=== PATIENT | male | born 1945 | race Caucasian/White ===

== ENCOUNTER 2019-09-27 19:06 | Observation (INO) | payer MEDICARE, BC ==
[2019-09-27] MEDS ORDERED: Sodium Chloride 0.9% 10 ML SDV IV PRN (19:10)
[2019-09-27] MEDS ORDERED: Aspirin 81 MG Tab.Chew PO ONE (19:10)
[2019-09-27] MEDS ORDERED: Sodium Chloride 0.9% 10 ML Syringe FLUSH PRN (19:10)
[2019-09-27] MEDS ORDERED: Sodium Chloride 0.9% 2.5 ML Syringe FLUSH PRN (19:10)
--- NOTE | 2019-09-27 19:16 | EDM.PDOC ---
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 This lasted for about 1 minute before symptoms subsided. He took 2 full dose aspirin tablets (approximately 648 mg) before driving to the emergency department. Here in the emergency department, he denies any neurologic complaints at this point. His visual disturbance was not associated with any facial numbness or weakness, dysarthria, facial droop, extremity numbness or weakness, gait instability, nausea, or vomiting. He denies any known history of hypertension, hyperlipidemia, or diabetes mellitus. At present, he has no complaints. Onset: Today Duration: Hour(s): (1) - Related Data Allergies Allergy/AdvReac Type Severity Reaction Status Date / Time No Known Allergies Allergy Verified 09/27/19 19:32 Home Meds: Home Meds . [No Known Home Meds] 09/27/19 [History] Past Medical History HEENT History: Reports: None Cardiovascular History: Reports: CAD, Hypertension Respiratory History: Reports: None Gastrointestinal History: Reports: None Genitourinary History: Reports: None Musculoskeletal History: Reports: None Neurological History: Reports: CVA (Remote history of an ischemic CVA approximately 20 years ago), Other (See Below) Other Neuro History: Stroke Psychiatric History: Reports: None Endocrine/Metabolic History: Reports: None Hematologic History: Reports: None Immunologic History: Reports: None Oncologic (Cancer) History: Reports: None Dermatologic History: Reports: None - Infectious Disease History Infectious Disease History: Reports: Chicken Pox - Past Surgical History HEENT Surgical History: Reports: Tonsillectomy Male Surgical History: Reports: None Social & Family History - Family History Family Medical History: Noncontributory - Caffeine Use Caffeine Use: Reports: Coffee ED ROS GENERAL - Review of Systems Review Of Systems: Comprehensive ROS is negative, except as noted in HPI. Constitutional: Denies: Fever HEENT: Reports: Vision Change Respiratory: Denies: Shortness of Breath Cardiovascular: Denies: Chest Pain Endocrine: Reports: No Symptoms GI/Abdominal: Denies: Abdominal Pain, Difficulty Swallowing, Nausea, Vomiting : Reports: No Symptoms Musculoskeletal: Reports: No Symptoms Skin: Reports: No Symptoms Neurological: Reports: Other (Transient visual disturbance). Denies: Dizziness , Headache, Numbness, Trouble Speaking, Difficulty Walking, Weakness, Change in Speech, Gait Disturbance Psychiatric: Reports: No Symptoms Hematologic/Lymphatic: Reports: No Symptoms Immunologic: Reports: No Symptoms ED EXAM, NEURO - Physical Exam Exam: See Below Exam Limited By: No Limitations General Appearance: Alert Ears: Hearing Grossly Normal Nose: Normal Inspection Throat/Mouth: Normal Inspection Head Exam: Atraumatic, Normocephalic Neck: Supple, Non-Tender, Full Range of Motion. No: Carotid Bruit, Limited Range of Motion Respiratory/Chest: Lungs Clear, Normal Breath Sounds, No Accessory Muscle Use Cardiovascular: Normal Peripheral Pulses, Regular Rate, Rhythm, No Edema, No Gallop GI/Abdominal: Soft, Non-Tender Neurological: Alert, Normal Mood/Affect, CN II-XII Intact, No Motor/Sensory Deficits, Oriented x 3, Other. No: Abnormal Gait, Abnormal Finger to Nose Extremities: Normal Range of Motion Psychiatric: Normal Affect, Normal Mood Skin Exam: Warm, Dry EKG INTERPRETATION EKG Date: 09/27/19 Time: 19:31 Rhythm: Other (Sinus bradycardia) Rate (Beats/Min): 55 [place]: LAD-Left [place]stone Deviation P-Wave: Enlarged QRS: LBBB ST-T: Normal QT: Normal EKG Interpretation Comments: Sinus bradycardia 55 bpm. Left axis deviation. First-degree AV block. Left bundle branch block. No ectopy or acute ischemia appreciated. Course - Vital Signs Text/Narrative:: On arrival, the patient was mildly hypertensive but afebrile and hemodynamically stable, well-appearing. Patient was immediately roomed in triage. No focal neurologic deficits noted, NIH score of 0. IV access was established and labs were sent off. We obtained a twelve-lead EKG, showing sinus bradycardia with a left bundle branch block and a first-degree AV block but no acute ischemia or ectopy. Labs returned showing no significant derangements. Normal cell lines. Normal INR and APTT. Metabolic panel shows mildly elevated BUN but normal creatinine and electrolytes. Troponin testing is negative. Hepatic markers are negative. We obtained a noncontrast head CT along with angiography neck, showing a old left parietal infarct but no acute changes. Patient received full dose aspirin prior to arrival to the hospital so this was not given here. Symptoms are concerning for a transient ischemic attack. ABCD2 score is 2. Serial examinations revealed no neurologic deficits, NIH score remains 0 during the emergency department course of treatment. Will plan for admission to the hospital on observation status for TIA work-up. I discussed with the accepting hospitalist Dr. Hartley who agrees to admit to observation. Last Recorded V/S: Last Vital Signs Temp 36.0 C L 09/27/19 19:29 Pulse 59 L 09/27/19 20:45 Resp 11 L 09/27/19 20:45 BP 150/84 H 09/27/19 20:45 Pulse Ox 99 09/27/19 20:45 - Orders/Labs/Meds Orders: Active Orders 24 hr Category Date Time Status Admission Status [Patient Status] [ADT] Stat ADT 09/27/19 21:18 Active Ambulate [RC] ASDIRECTED Care 09/27/19 21:29 Active Antiembolic Devices [RC] PER UNIT ROUTINE Care 09/27/19 21:30 Active Assess Neurological Status [RC] CONTINUOUS Care 09/27/19 19:10 Active Blood Glucose Check, Bedside [RC] STAT Care 09/27/19 19:10 Active Cardiac Monitoring [RC] CONTINUOUS Care 09/27/19 19:10 Active Communication Order [RC] STAT Care 09/27/19 19:10 Active EKG 12 Lead [EKG Documentation Completion] [RC] STAT Care 09/27/19 19:14 Active Height and Weight [RC] UPON Care 09/27/19 19:10 Active NIH Stroke Scale [RC] STAT Care 09/27/19 19:10 Active Oxygen Therapy [RC] PRN Care 09/27/19 21:29 Active Oxygen Therapy, ED [RC] ASDIRECTED Care 09/27/19 19:10 Active VTE/DVT Education [RC] PER UNIT ROUTINE Care 09/27/19 21:29 Active Vital Signs [RC] Q15M Care 09/27/19 19:10 Active Vital Signs [RC] Q4H Care 09/27/19 21:29 Active Heart Healthy Diet [DIET] Diet 09/27/19 Dinner Active Ang Head wo Cont [MR] Routine Exams 09/27/19 21:32 Ordered Brain wo Cont [MR] Routine Exams 09/27/19 21:32 Ordered Echo Comp wo Cont [US] Stat Exams 09/27/19 21:53 Ordered GLYCOSYLATED HEMOGLOBIN,HGBA1C [CHEM] AM Lab 09/28/19 05:11 Ordered LIPID PANEL [CHEM] AM Lab 09/28/19 05:11 Ordered TROPONIN I [CHEM] Routine Lab 09/27/19 22:00 Ordered TSH [CHEM] AM Lab 09/28/19 05:11 Ordered UA W/MICROSCOPIC [URIN] Routine Lab 09/27/19 21:29 Ordered Acetaminophen [Tylenol] Med 09/27/19 21:29 Active 650 mg PO Q4H PRN Aspirin Med 09/28/19 09:00 Active 81 mg PO DAILY Sodium Chloride 0.9% [Normal Saline] Med 09/27/19 19:10 Active 10 ml IV ASDIRECTED PRN Sodium Chloride 0.9% [Saline Flush] Med 09/27/19 19:10 Active 10 ml FLUSH ASDIRECTED PRN Sodium Chloride 0.9% [Saline Flush] Med 09/27/19 19:10 Active 2.5 ml FLUSH ASDIRECTED PRN atorvaSTATin [Lipitor] Med 09/28/19 21:00 Active 40 mg PO BEDTIME Peripheral IV Insertion Adult [OM.PC] Stat Oth 09/27/19 19:10 Ordered Sequential Compression Device [OM.PC] Per Unit Routine Oth 09/27/19 21:29 Ordered Resuscitation Status Stat Resus Stat 09/27/19 19:10 Ordered Medication Orders Acetaminophen (Tylenol) 650 mg PO Q4H PRN PRN Reason: Pain (Mild 1-3)/fever Aspirin (Aspirin) 81 mg PO DAILY ISMAEL Atorvastatin Calcium (Lipitor) 40 mg PO BEDTIME ISMAEL Sodium Chloride (Saline Flush) 10 ml FLUSH ASDIRECTED PRN PRN Reason: Keep Vein Open Sodium Chloride (Saline Flush) 2.5 ml FLUSH ASDIRECTED PRN PRN Reason: Keep Vein Open Sodium Chloride (Normal Saline) 10 ml IV ASDIRECTED PRN PRN Reason: IV Use Labs: Laboratory Tests 09/27/19 09/27/19 09/27/19 Range/Units 19:05 19:05 19:05 WBC 5.18 (4.0-11.0) K/uL RBC 4.44 L (4.50-5.90) M/uL Hgb 13.6 (13.0-17.0) g/dL Hct 41.7 (38.0-50.0) % MCV 93.9 (80.0-98.0) fL MCH 30.6 (27.0-32.0) pg MCHC 32.6 (31.0-37.0) g/dL RDW Std Deviation 48.8 (28.0-62.0) fl RDW Coeff of Yosef 14 (11.0-15.0) % Plt Count 204 (150-400) K/uL MPV 9.70 (7.40-12.00) fL Neut % (Auto) 54.6 (48.0-80.0) % Lymph % (Auto) 32.2 (16.0-40.0) % [place] % (Auto) 8.5 (0.0-15.0) % Eos % (Auto) 3.5 (0.0-7.0) % Baso % (Auto) 1.2 (0.0-1.5) % Neut # (Auto) 2.8 (1.4-5.7) K/uL Lymph # (Auto) 1.7 (0.6-2.4) K/uL [place] # (Auto) 0.4 (0.0-0.8) K/uL Eos # (Auto) 0.2 (0.0-0.7) K/uL Baso # (Auto) 0.1 (0.0-0.1) K/uL Nucleated RBC % 0.0 /100WBC Nucleated RBCs # 0 K/uL INR 1.01 APTT 27.8 (18.6-31.3) SEC Sodium 140 (136-148) mmol/L Potassium 4.2 (3.5-5.1) mmol/L Chloride 104 (98-107) mmol/L Carbon Dioxide 31.4 (21.0-32.0) mmol/L BUN 19 H (7.0-18.0) mg/dL Creatinine 1.1 (0.8-1.3) mg/dL Est Cr Clr Drug Dosing 75.38 mL/min Estimated GFR (MDRD) > 60.0 ml/min Glucose 97 (74-106) mg/dL Calcium 8.6 (8.5-10.1) mg/dL Total Bilirubin 0.4 (0.2-1.0) mg/dL AST 18 (15-37) IU/L ALT 24 (14-63) IU/L Alkaline Phosphatase 66 (46-116) U/L Troponin I < 0.050 (0.000-0.056) ng/mL Total Protein 6.6 (6.4-8.2) g/dL Albumin 3.6 (3.4-5.0) g/dL Globulin 3.0 (2.6-4.0) g/dL Albumin/Globulin Ratio 1.2 (0.9-1.6) Meds: Medications Generic Name Dose Route Start Last Admin Trade Name Freq PRN Reason Stop Dose Admin Acetaminophen 650 mg 09/27/19 21:29 Tylenol PO Q4H PRN Pain (Mild 1-3)/fever Aspirin 81 mg 09/28/19 09:00 Aspirin PO DAILY ISMAEL Atorvastatin Calcium 40 mg 09/28/19 21:00 Lipitor PO BEDTIME ISMAEL Sodium Chloride 10 ml 09/27/19 19:10 Saline Flush FLUSH ASDIRECTED PRN Keep Vein Open Sodium Chloride 2.5 ml 09/27/19 19:10 Saline Flush FLUSH ASDIRECTED PRN Keep Vein Open Sodium Chloride 10 ml 09/27/19 19:10 Normal Saline IV ASDIRECTED PRN IV Use Discontinued Medications Generic Name Dose Route Start Last Admin Trade Name Freq PRN Reason Stop Dose Admin Aspirin 324 mg 09/27/19 19:10 09/27/19 19:29 Aspirin PO 09/27/19 19:11 Not Given ONETIME ONE Iopamidol 100 ml 09/27/19 20:47 09/27/19 20:47 Isovue-370 (76%) IVPUSH 09/27/19 20:48 100 ml ONETIME STA Administration - Re-Assessments/Exams Free Text/Narrative Re-Assessment/Exam: 09/27/19 21:34 Resting comfortably, no complaints. Ambulated without difficulty. No neurologic deficits noted. Negative Romberg. Remains complaint free. Departure - Departure Time of Disposition: 21:00 Disposition: Refer to Observation Condition: Good Clinical Impression: TIA (transient ischemic attack) - Discharge Information *PRESCRIPTION DRUG MONITORING PROGRAM REVIEWED*: Not Applicable *COPY OF PRESCRIPTION DRUG MONITORING REPORT IN PATIENT CHANTEL: Not Applicable Forms: ED Department Discharge Sepsis Event Note - Focused Exam Vital Signs: Vital Signs Temp Pulse Resp BP Pulse Ox 09/27/19 20:45 59 L 11 L 150/84 H 99 09/27/19 20:00 57 L 11 L 165/90 H 100 09/27/19 19:45 57 L 12 156/79 H 98 09/27/19 19:30 56 L 16 156/79 H 98 09/27/19 19:29 36.0 C L 62 20 162/86 H 95 Date Exam was Performed: 09/27/19 Time Exam was Performed: 21:54 - My Orders Last 24 Hours: My Active Orders 09/27/19 19:10 Assess Neurological Status [RC] CONTINUOUS Blood Glucose Check, Bedside [RC] STAT Cardiac Monitoring [RC] CONTINUOUS Communication Order [RC] STAT Height and Weight [RC] UPON NIH Stroke Scale [RC] STAT Oxygen Therapy, ED [RC] ASDIRECTED Vital Signs [RC] Q15M Sodium Chloride 0.9% [Normal Saline] 10 ml IV ASDIRECTED PRN Sodium Chloride 0.9% [Saline Flush] 10 ml FLUSH ASDIRECTED PRN Sodium Chloride 0.9% [Saline Flush] 2.5 ml FLUSH ASDIRECTED PRN Peripheral IV Insertion Adult [OM.PC] Stat Resuscitation Status Stat 09/27/19 19:14 EKG 12 Lead [EKG Documentation Completion] [RC] STAT 09/27/19 21:18 Admission Status [Patient Status] [ADT] Stat - Assessment/Plan Last 24 Hours: My Active Orders 09/27/19 19:10 Assess Neurological Status [RC] CONTINUOUS Blood Glucose Check, Bedside [RC] STAT Cardiac Monitoring [RC] CONTINUOUS Communication Order [RC] STAT Height and Weight [RC] UPON NIH Stroke Scale [RC] STAT Oxygen Therapy, ED [RC] ASDIRECTED Vital Signs [RC] Q15M Sodium Chloride 0.9% [Normal Saline] 10 ml IV ASDIRECTED PRN Sodium Chloride 0.9% [Saline Flush] 10 ml FLUSH ASDIRECTED PRN Sodium Chloride 0.9% [Saline Flush] 2.5 ml FLUSH ASDIRECTED PRN Peripheral IV Insertion Adult [OM.PC] Stat Resuscitation Status Stat 09/27/19 19:14 EKG 12 Lead [EKG Documentation Completion] [RC] STAT 09/27/19 21:18 Admission Status [Patient Status] [ADT] Stat
[2019-09-27 19:38] LABS: BLOOD UREA NITROGEN,BUN 19 mg/dL (7.0-18.0); CARBON DIOXIDE,CO2 31.4 mmol/L (21.0-32.0); CHLORIDE,CL 104 mmol/L (98-107); GLUCOSE RANDOM 97 mg/dL (74-106); POTASSIUM,K 4.2 mmol/L (3.5-5.1); SODIUM,NA 140 mmol/L (136-148)
[2019-09-27] MEDS ORDERED: Iopamidol 755 Mg/ML 100 ML Bottle IVPUSH STA (20:47)
--- NOTE | 2019-09-27 21:09 | CT ---
CT angiogram of brain Technique: Multiple axial sections through the brain were obtained. Intravenous contrast was performed. Intravenous contrast obtained during the arterial phase. Multiple MIP images were obtained. Findings: Basilar artery is patent into the posterior cerebral arteries. No focal stenosis is seen. Common carotid arteries are patent into the middle cerebral arteries and anterior cerebral arteries. No focal stenosis is seen. No vascular occlusion is identified. No discrete aneurysm is appreciated. Impression: 1. No abnormality is identified on CT angiogram study of the brain. Diagnostic code #1 This report was dictated in MDT
--- NOTE | 2019-09-27 21:11 | CT ---
CT angiogram of neck (without and with intravenous contrast) Noncontrast images shows mild atherosclerotic calcification within the carotid bulb. Mucosal thickening seen within the maxillary sinuses, ethmoid sinuses. These paranasal sinus findings are most likely chronic. Neck shows no adenopathy. Technique: Multiple axial sections were obtained through the neck. Intravenous contrast was utilized. Study performed as a CT angiogram protocol. Multiple MIP images were obtained. Findings: Vertebral arteries are opacified no evidence of vertebral stenosis. No dissection is seen. Patency into the basilar artery is noted. Common carotid arteries are patent. No focal stenosis is seen. Mild atherosclerotic calcification is noted within the carotid bulb. No focal stenosis is seen within the carotid bulb. Internal carotid arteries are patent. Internal carotid are patent into the carotid siphon. Impression: 1. Mild atherosclerotic calcification around the carotid bulb. 2. No focal stenosis, occlusion or dissection is seen within the common carotid arteries, vertebral arteries or internal carotid arteries. 3. Sinus findings which are most likely chronic. Diagnostic code #2 This report was dictated in MDT
--- NOTE | 2019-09-27 21:13 | CT ---
Head CT Technique: Multiple axial sections through the brain were obtained. Intravenous contrast was not utilized. Comparison: Prior head CT study of 02/01/17. Findings: Old infarct is noted within the left parietal region. Findings are similar to previous exam. Ventricles along with basal cisterns and sulci over the convexities are within normal limits for the patient's age. No other abnormal parenchymal densities are seen. No evidence of intracranial hemorrhage. No midline shift or mass-effect is seen. No acute calvarial finding is seen. Minimal mucosal thickening is seen within the inferior right mastoid sinuses which is likely incidental. Mucosal thickening is seen within the paranasal sinuses which is most likely chronic. Impression: 1. Probable chronic sinusitis. 2. Old infarct within the left parietal region. 3. No acute intracranial abnormality is appreciated. Diagnostic code #2 This report was dictated in MDT
[2019-09-27] MEDS ORDERED: Acetaminophen 325 MG Tab PO PRN (21:29)
--- NOTE | 2019-09-27 21:36 | PCM.HP.2 ---
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 Patient states that approximately 70 minutes prior to arrival to ER, he experienced total blindness to the bilateral upper visual shelby of the right eye. His visual disturbance was not associated with any facial numbness or weakness, dysarthria, facial droop, extremity numbness or weakness, gait instability, nausea, or vomiting. This lasted for about 1 minute before symptoms subsided. He took 2 full dose aspirin tablets before driving to the emergency department. In the ER patients symptoms had resolved, He denies any known history of hypertension, hyperlipidemia, or diabetes mellitus. Patient was mildly hypertensive otherwise hemodynamically stable, NIH score of 0. twelve-lead EKG, showing sinus bradycardia with a left bundle branch block and a first-degree AV block but no acute ischemia or ectopy. Lab work was normal, Troponin testing is negative. Head CT along with angiography neck, showing a old left parietal infarct but no acute changes. Patient is being admitted for further care for possible TIA . - Related Data Allergies/Adverse Reactions: Allergies Allergy/AdvReac Type Severity Reaction Status Date / Time No Known Allergies Allergy Verified 09/27/19 19:32 Home Medications: Home Meds . [No Known Home Meds] 09/27/19 [History] Past Medical History HEENT History: Reports: None Cardiovascular History: Reports: CAD, Hypertension Respiratory History: Reports: None Gastrointestinal History: Reports: None Genitourinary History: Reports: None Musculoskeletal History: Reports: None Neurological History: Reports: CVA (Remote history of an ischemic CVA approximately 20 years ago), Other (See Below) Other Neuro History: Stroke Psychiatric History: Reports: None Endocrine/Metabolic History: Reports: None Hematologic History: Reports: None Immunologic History: Reports: None Oncologic (Cancer) History: Reports: None Dermatologic History: Reports: None - Infectious Disease History Infectious Disease History: Reports: Chicken Pox - Past Surgical History HEENT Surgical History: Reports: Tonsillectomy Male Surgical History: Reports: None Social & Family History - Family History Family Medical History: Noncontributory - Tobacco Use Smoking Status *Q: Never Smoker - Caffeine Use Caffeine Use: Reports: Coffee - Recreational Drug Use Recreational Drug Use: No H&P Review of Systems - Review of Systems: Review Of Systems: See Below General: Denies: Fever, Chills, Malaise HEENT: Reports: Visual Changes (resolved). Denies: Contact Lenses, Dysphasia Pulmonary: Denies: Shortness of Breath, Wheezing, Pleuritic Chest Pain Cardiovascular: Denies: Chest Pain, Palpitations, Dyspnea on Exertion Gastrointestinal: Denies: Abdominal Pain, Anorexia, Black Stool, Hematemesis, Nausea Genitourinary: Denies: Dysuria Musculoskeletal: Denies: Neck Pain, Shoulder Pain Skin: Denies: Cyanosis, Jaundice, Mottled Psychiatric: Denies: Confusion, Depression, Mood Lability, Anxiety Neurological: Denies: Confusion, Dizziness, Headache, Syncope, Tingling Hematologic/Lymphatic: Denies: Anemia, Easy Bleeding, Easy Bruising Exam - Exam Exam: See Below - Vital Signs Vital Signs: Last Vital Signs Temp 36.0 C L 09/27/19 19:29 Pulse 59 L 09/27/19 20:45 Resp 11 L 09/27/19 20:45 BP 150/84 H 09/27/19 20:45 Pulse Ox 99 09/27/19 20:45 Weight: 97.522 kg - Exam General: Alert, Oriented HEENT: Conjunctiva Clear Neck: Supple, Trachea Midline Lungs: Clear to Auscultation, Normal Respiratory Effort Cardiovascular: Regular Rhythm, Normal S1, Normal S2, Bradycardia GI/Abdominal Exam: Normal Bowel Sounds, Soft, Non-Tender Extremities: Normal Inspection, Normal Range of Motion Peripheral Pulses: 3+: Dorsalis Pedis (L), Dorsalis Pedis (R) Skin: Warm Neuro Extensive - Mental Status: Alert, Oriented x3, Normal Mood/Affect Neuro Extensive - Motor, Sensory, Reflexes: CN II-XII Intact, Normal Gait, Normal Reflexes. No: Ataxia, Tongue Deviation (L), Dysarthria, Receptive Aphasia, Expressive Aphasia DTR: 2+: Patella (L), Patella (R) - Patient Data Lab Results Last 24 hrs: Laboratory Results - last 24 hr 05/18/20 05/18/20 05/18/20 Range/Units 19:05 19:05 19:05 WBC 5.18 (4.0-11.0) K/uL RBC 4.44 L (4.50-5.90) M/uL Hgb 13.6 (13.0-17.0) g/dL Hct 41.7 (38.0-50.0) % MCV 93.9 (80.0-98.0) fL MCH 30.6 (27.0-32.0) pg MCHC 32.6 (31.0-37.0) g/dL RDW Std Deviation 48.8 (28.0-62.0) fl RDW Coeff of Yosef 14 (11.0-15.0) % Plt Count 204 (150-400) K/uL MPV 9.70 (7.40-12.00) fL Neut % (Auto) 54.6 (48.0-80.0) % Lymph % (Auto) 32.2 (16.0-40.0) % [place] % (Auto) 8.5 (0.0-15.0) % Eos % (Auto) 3.5 (0.0-7.0) % Baso % (Auto) 1.2 (0.0-1.5) % Neut # (Auto) 2.8 (1.4-5.7) K/uL Lymph # (Auto) 1.7 (0.6-2.4) K/uL [place] # (Auto) 0.4 (0.0-0.8) K/uL Eos # (Auto) 0.2 (0.0-0.7) K/uL Baso # (Auto) 0.1 (0.0-0.1) K/uL Nucleated RBC % 0.0 /100WBC Nucleated RBCs # 0 K/uL INR 1.01 APTT 27.8 (18.6-31.3) SEC Sodium 140 (136-148) mmol/L Potassium 4.2 (3.5-5.1) mmol/L Chloride 104 (98-107) mmol/L Carbon Dioxide 31.4 (21.0-32.0) mmol/L BUN 19 H (7.0-18.0) mg/dL Creatinine 1.1 (0.8-1.3) mg/dL Est Cr Clr Drug Dosing 75.38 mL/min Estimated GFR (MDRD) > 60.0 ml/min Glucose 97 (74-106) mg/dL Calcium 8.6 (8.5-10.1) mg/dL Total Bilirubin 0.4 (0.2-1.0) mg/dL AST 18 (15-37) IU/L ALT 24 (14-63) IU/L Alkaline Phosphatase 66 (46-116) U/L Troponin I < 0.050 (0.000-0.056) ng/mL Total Protein 6.6 (6.4-8.2) g/dL Albumin 3.6 (3.4-5.0) g/dL Globulin 3.0 (2.6-4.0) g/dL Albumin/Globulin Ratio 1.2 (0.9-1.6) Result Diagrams: 09/27/19 19:05 09/27/19 19:05 Sepsis Event Note - Evaluation Sepsis Screening Result: No Definite Risk - Focused Exam Vital Signs: Vital Signs Temp Pulse Resp BP Pulse Ox 09/27/19 20:45 59 L 11 L 150/84 H 99 09/27/19 20:00 57 L 11 L 165/90 H 100 09/27/19 19:45 57 L 12 156/79 H 98 09/27/19 19:30 56 L 16 156/79 H 98 09/27/19 19:29 36.0 C L 62 20 162/86 H 95 Date Exam was Performed: 09/27/19 Time Exam was Performed: 22:44 - Problem List (1) Vision changes SNOMED Code(s): 985755328 ICD Code: H53.9 - UNSPECIFIED VISUAL DISTURBANCE Status: Acute Current Visit: No (2) CVA, old, aphasia SNOMED Code(s): 534873944 ICD Code: I69.320 - APHASIA FOLLOWING CEREBRAL INFARCTION Status: Acute Current Visit: No (3) HTN (hypertension) SNOMED Code(s): 30403192 ICD Code: I10 - ESSENTIAL (PRIMARY) HYPERTENSION Status: Acute Current Visit: No Problem List Initiated/Reviewed/Updated: Yes Orders Last 24hrs: Active Orders 24 hr Category Date Time Status Admission Status [Patient Status] [ADT] Stat ADT 09/27/19 21:18 Active Ambulate [RC] ASDIRECTED Care 09/27/19 21:29 Ordered Antiembolic Devices [RC] PER UNIT ROUTINE Care 09/27/19 21:30 Ordered Assess Neurological Status [RC] CONTINUOUS Care 09/27/19 19:10 Active Blood Glucose Check, Bedside [RC] STAT Care 09/27/19 19:10 Active Cardiac Monitoring [RC] CONTINUOUS Care 09/27/19 19:10 Active Communication Order [RC] STAT Care 09/27/19 19:10 Active EKG 12 Lead [EKG Documentation Completion] [RC] STAT Care 09/27/19 19:14 Active Height and Weight [RC] UPON Care 09/27/19 19:10 Active NIH Stroke Scale [RC] STAT Care 09/27/19 19:10 Active Oxygen Therapy [RC] PRN Care 09/27/19 21:29 Ordered Oxygen Therapy, ED [RC] ASDIRECTED Care 09/27/19 19:10 Active VTE/DVT Education [RC] PER UNIT ROUTINE Care 09/27/19 21:29 Ordered Vital Signs [RC] Q15M Care 09/27/19 19:10 Active Vital Signs [RC] Q4H Care 09/27/19 21:29 Ordered Heart Healthy Diet [DIET] Diet 09/27/19 Dinner Ordered Ang Head wo Cont [MR] Routine Exams 09/27/19 21:32 Ordered Brain wo Cont [MR] Routine Exams 09/27/19 21:32 Ordered GLYCOSYLATED HEMOGLOBIN,HGBA1C [CHEM] AM Lab 09/28/19 05:11 Ordered LIPID PANEL [CHEM] AM Lab 09/28/19 05:11 Ordered TROPONIN I [CHEM] Routine Lab 09/27/19 22:00 Ordered TSH [CHEM] AM Lab 09/28/19 05:11 Ordered UA W/MICROSCOPIC [URIN] Routine Lab 09/27/19 21:29 Ordered Acetaminophen [Tylenol] Med 09/27/19 21:29 Ordered 650 mg PO Q4H PRN Aspirin Med 09/28/19 09:00 Ordered 81 mg PO DAILY Sodium Chloride 0.9% [Normal Saline] Med 09/27/19 19:10 Active 10 ml IV ASDIRECTED PRN Sodium Chloride 0.9% [Saline Flush] Med 09/27/19 19:10 Active 10 ml FLUSH ASDIRECTED PRN Sodium Chloride 0.9% [Saline Flush] Med 09/27/19 19:10 Active 2.5 ml FLUSH ASDIRECTED PRN atorvaSTATin [Lipitor] Med 09/28/19 21:00 Ordered 40 mg PO BEDTIME Peripheral IV Insertion Adult [OM.PC] Stat Oth 09/27/19 19:10 Ordered Sequential Compression Device [OM.PC] Per Unit Routine Oth 09/27/19 21:29 Ordered Resuscitation Status Stat Resus Stat 09/27/19 19:10 Ordered Medication Orders Acetaminophen (Tylenol) 650 mg PO Q4H PRN PRN Reason: Pain (Mild 1-3)/fever Aspirin (Aspirin) 81 mg PO DAILY ISMAEL Atorvastatin Calcium (Lipitor) 40 mg PO BEDTIME ISMAEL Sodium Chloride (Saline Flush) 10 ml FLUSH ASDIRECTED PRN PRN Reason: Keep Vein Open Sodium Chloride (Saline Flush) 2.5 ml FLUSH ASDIRECTED PRN PRN Reason: Keep Vein Open Sodium Chloride (Normal Saline) 10 ml IV ASDIRECTED PRN PRN Reason: IV Use Assessment/Plan Comment:: 74 y/o M admitted for possible TIA CTA scan negative for acute findings Obtain MRI/MRA of brain Obtain 2D ECHO Lipid panel, Glycated Hb, TSH for risk stratification ASA, Statin Allow permissive HTN SCD for DVT ppx
[2019-09-27] MEDS ORDERED: hydrALAZINE 20 MG/ML SDV IVPUSH PRN (23:37)
[2019-09-28 06:19] LABS: HEMOGLOBIN A1C 5.4 % (4.5-6.2)
[2019-09-28 07:34] VITALS: BP 158/81; PULSE 52
[2019-09-28] MEDS ORDERED: Aspirin 81 MG Tab.Chew PO SCH (09:00)
--- NOTE | 2019-09-28 10:58 | PCM.DCSUM1 ---
<Evette Bates - Last Filed: 09/28/19 11:37> Discharge Summary - Hospital Course HPI Initial Comments: Admission Date: 09/27/19 Discharge Date: 09/28/19 Admission Diagnosis: 1. Transient vision loss suspect TIA 2. History of CVA and repaired PFO Discharge Diagnosis: 1. Transient vision loss suspect TIA 2. 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 He states he lost the upper visual shelby of the right eye. Denied any additional symptoms. Work up in the ER revealed no significant values, troponin was negative. Head CT, Head/ neck CTA showed his old left parietal infarct but no acute changes. Patient was admitted to the medical floor. He was started on aspirin and statin. He was monitored on telemetry. Echo and MRI of the brain were scheduled but patient requested discharge and requested tests to be done as an outpatient. He had no further episodes of vision loss or additional symptoms consistent with TIA/stroke. Disposition: Home Discharge Condition: vitals stable, tolerating oral diet, ambulating without difficulty, symptom improvement Discharge Instructions: regular diet as tolerated, activity as tolerated, take medications as prescribed. Symptoms to report to physician include fever/chills , vision loss, facial droop, slurred speech, extremity weakness,chest pain, shortness of breath, abdominal pain, erythema, drainage/discharge, or not improving as expected. Discharge Medications: Ascorbate Calcium [Vitamin C] 500 mg PO DAILY Lutein 1 cap PO DAILY [place]-3/DHA/Epa/Fish Oil [Fish Oil 1,000 mg Softgel] 1 cap PO Aspirin 325 mg PO DAILY atorvaSTATin [Lipitor] 40 mg PO BEDTIME tablet Follow-up: 1. PCP 2. Cardiology 3. Outpatient imaging- echo and MRI brain - Discharge Data Discharge Date: 09/28/19 Discharge Disposition: Home, Self-Care 01 Condition: Stable - Referral to Home Health Primary Care Physician: PCP None - Patient Instructions Diet: Usual Diet as Tolerated Activity: As Tolerated Showering/Bathing: May Shower Notify Provider of: Fever, Increased Pain, Swelling and Redness, Drainage, Nausea and/or Vomiting Other/Special Instructions: Additional symptoms include chest pain, shortness of breath, abdominal pain, slurred speech, vision changes, facial droop, or extremity weakness. You will need outpatient MRI of the brain and echo of the heart. - Discharge Plan *PRESCRIPTION DRUG MONITORING PROGRAM REVIEWED*: Not Applicable *COPY OF PRESCRIPTION DRUG MONITORING REPORT IN PATIENT CHANTEL: Not Applicable Prescriptions/Med Rec: Aspirin 325 mg PO DAILY 30 Days #30 tablet Home Medications: Home Meds Ascorbate Calcium [Vitamin C] 500 mg PO DAILY 09/27/19 [History] Lutein 1 cap PO DAILY 09/27/19 [History] [place]-3/DHA/Epa/Fish Oil [Fish Oil 1,000 mg Softgel] 1 cap PO 09/27/19 [History] Aspirin 325 mg PO DAILY 30 Days #30 tablet 09/28/19 [Rx] atorvaSTATin [Lipitor] 40 mg PO BEDTIME tablet 09/28/19 [Rx] Patient Handouts: Transient Ischemic Attack, [id number]-or-[id number], Magnetic Resonance Imaging, [id number], Atorvastatin tablets, Aspirin, ASA oral tablets, Echocardiogram - Discharge Summary/Plan Comment DC Time >30 min.: No - Patient Data Vitals - Most Recent: Last Vital Signs Temp 98.1 F 09/28/19 08:00 Pulse 52 L 09/28/19 08:00 Resp 16 09/28/19 08:00 BP 158/81 H 09/28/19 08:00 Pulse Ox 94 L 09/28/19 08:00 Weight - Most Recent: 97.522 kg I&O - Last 24 hours: Intake & Output 09/27/19 09/28/19 09/28/19 22:59 06:59 14:59 Intake Total 550 Output Total 400 Balance 150 Lab Results - Last 24 hrs: Laboratory Results - last 24 hr 09/27/19 09/27/19 09/27/19 Range/Units 19:05 19:05 19:05 WBC 5.18 (4.0-11.0) K/uL RBC 4.44 L (4.50-5.90) M/uL Hgb 13.6 (13.0-17.0) g/dL Hct 41.7 (38.0-50.0) % MCV 93.9 (80.0-98.0) fL MCH 30.6 (27.0-32.0) pg MCHC 32.6 (31.0-37.0) g/dL RDW Std Deviation 48.8 (28.0-62.0) fl RDW Coeff of Yosef 14 (11.0-15.0) % Plt Count 204 (150-400) K/uL MPV 9.70 (7.40-12.00) fL Neut % (Auto) 54.6 (48.0-80.0) % Lymph % (Auto) 32.2 (16.0-40.0) % [place] % (Auto) 8.5 (0.0-15.0) % Eos % (Auto) 3.5 (0.0-7.0) % Baso % (Auto) 1.2 (0.0-1.5) % Neut # (Auto) 2.8 (1.4-5.7) K/uL Lymph # (Auto) 1.7 (0.6-2.4) K/uL [place] # (Auto) 0.4 (0.0-0.8) K/uL Eos # (Auto) 0.2 (0.0-0.7) K/uL Baso # (Auto) 0.1 (0.0-0.1) K/uL Nucleated RBC % 0.0 /100WBC Nucleated RBCs # 0 K/uL INR 1.01 APTT 27.8 (18.6-31.3) SEC Sodium 140 (136-148) mmol/L Potassium 4.2 (3.5-5.1) mmol/L Chloride 104 (98-107) mmol/L Carbon Dioxide 31.4 (21.0-32.0) mmol/L BUN 19 H (7.0-18.0) mg/dL Creatinine 1.1 (0.8-1.3) mg/dL Est Cr Clr Drug Dosing 75.38 mL/min Estimated GFR (MDRD) > 60.0 ml/min Glucose 97 (74-106) mg/dL Hemoglobin A1c (4.5-6.2) % Calcium 8.6 (8.5-10.1) mg/dL Total Bilirubin 0.4 (0.2-1.0) mg/dL AST 18 (15-37) IU/L ALT 24 (14-63) IU/L Alkaline Phosphatase 66 (46-116) U/L Troponin I < 0.050 (0.000-0.056) ng/mL Total Protein 6.6 (6.4-8.2) g/dL Albumin 3.6 (3.4-5.0) g/dL Globulin 3.0 (2.6-4.0) g/dL Albumin/Globulin Ratio 1.2 (0.9-1.6) Triglycerides (0-200) mg/dL Cholesterol (50-200) mg/dL LDL Cholesterol, Calc (60-180) mg/dL VLDL Cholesterol (5-55) mg/dL HDL Cholesterol (40-60) mg/dL Cholesterol/HDL Ratio (3.3-6.0) TSH 3rd Generation (0.36-3.74) uIU/mL Urine Color Urine Appearance Urine pH (5.0-8.0) Ur Specific [place] (1.001-1.035) Urine Protein (NEGATIVE) mg/dL Urine Glucose (UA) (NEGATIVE) mg/dL Urine Ketones (NEGATIVE) mg/dL Urine Occult Blood (NEGATIVE) Urine Nitrite (NEGATIVE) Urine Bilirubin (NEGATIVE) Urine Urobilinogen (<2.0) EU/dL Ur Leukocyte Esterase (NEGATIVE) Urine RBC (0-2/HPF) Urine WBC (0-5/HPF) Ur Epithelial Cells (NONE-FEW) Urine Bacteria (NEGATIVE) Urine Mucus (NONE-MOD) 09/27/19 09/28/19 09/28/19 Range/Units 22:03 02:30 05:48 WBC (4.0-11.0) K/uL RBC (4.50-5.90) M/uL Hgb (13.0-17.0) g/dL Hct (38.0-50.0) % MCV (80.0-98.0) fL MCH (27.0-32.0) pg MCHC (31.0-37.0) g/dL RDW Std Deviation (28.0-62.0) fl RDW Coeff of Yosef (11.0-15.0) % Plt Count (150-400) K/uL MPV (7.40-12.00) fL Neut % (Auto) (48.0-80.0) % Lymph % (Auto) (16.0-40.0) % [place] % (Auto) (0.0-15.0) % Eos % (Auto) (0.0-7.0) % Baso % (Auto) (0.0-1.5) % Neut # (Auto) (1.4-5.7) K/uL Lymph # (Auto) (0.6-2.4) K/uL [place] # (Auto) (0.0-0.8) K/uL Eos # (Auto) (0.0-0.7) K/uL Baso # (Auto) (0.0-0.1) K/uL Nucleated RBC % /100WBC Nucleated RBCs # K/uL INR APTT (18.6-31.3) SEC Sodium (136-148) mmol/L Potassium (3.5-5.1) mmol/L Chloride (98-107) mmol/L Carbon Dioxide (21.0-32.0) mmol/L BUN (7.0-18.0) mg/dL Creatinine (0.8-1.3) mg/dL Est Cr Clr Drug Dosing mL/min Estimated GFR (MDRD) ml/min Glucose (74-106) mg/dL Hemoglobin A1c (4.5-6.2) % Calcium (8.5-10.1) mg/dL Total Bilirubin (0.2-1.0) mg/dL AST (15-37) IU/L ALT (14-63) IU/L Alkaline Phosphatase (46-116) U/L Troponin I < 0.050 (0.000-0.056) ng/mL Total Protein (6.4-8.2) g/dL Albumin (3.4-5.0) g/dL Globulin (2.6-4.0) g/dL Albumin/Globulin Ratio (0.9-1.6) Triglycerides 65 (0-200) mg/dL Cholesterol 160 (50-200) mg/dL LDL Cholesterol, Calc 101 (60-180) mg/dL VLDL Cholesterol 13 (5-55) mg/dL HDL Cholesterol 46 (40-60) mg/dL Cholesterol/HDL Ratio 3.5 (3.3-6.0) TSH 3rd Generation 1.70 (0.36-3.74) uIU/mL Urine Color YELLOW Urine Appearance CLEAR Urine pH 6.5 (5.0-8.0) Ur Specific [place] 1.010 (1.001-1.035) Urine Protein NEGATIVE (NEGATIVE) mg/dL Urine Glucose (UA) NEGATIVE (NEGATIVE) mg/dL Urine Ketones NEGATIVE (NEGATIVE) mg/dL Urine Occult Blood NEGATIVE (NEGATIVE) Urine Nitrite NEGATIVE (NEGATIVE) Urine Bilirubin NEGATIVE (NEGATIVE) Urine Urobilinogen 0.2 (<2.0) EU/dL Ur Leukocyte Esterase NEGATIVE (NEGATIVE) Urine RBC NONE SEEN (0-2/HPF) Urine WBC 0-1 (0-5/HPF) Ur Epithelial Cells RARE (NONE-FEW) Urine Bacteria RARE (NEGATIVE) Urine Mucus LIGHT (NONE-MOD) 09/28/19 Range/Units 05:48 WBC (4.0-11.0) K/uL RBC (4.50-5.90) M/uL Hgb (13.0-17.0) g/dL Hct (38.0-50.0) % MCV (80.0-98.0) fL MCH (27.0-32.0) pg MCHC (31.0-37.0) g/dL RDW Std Deviation (28.0-62.0) fl RDW Coeff of Yosef (11.0-15.0) % Plt Count (150-400) K/uL MPV (7.40-12.00) fL Neut % (Auto) (48.0-80.0) % Lymph % (Auto) (16.0-40.0) % [place] % (Auto) (0.0-15.0) % Eos % (Auto) (0.0-7.0) % Baso % (Auto) (0.0-1.5) % Neut # (Auto) (1.4-5.7) K/uL Lymph # (Auto) (0.6-2.4) K/uL [place] # (Auto) (0.0-0.8) K/uL Eos # (Auto) (0.0-0.7) K/uL Baso # (Auto) (0.0-0.1) K/uL Nucleated RBC % /100WBC Nucleated RBCs # K/uL INR APTT (18.6-31.3) SEC Sodium (136-148) mmol/L Potassium (3.5-5.1) mmol/L Chloride (98-107) mmol/L Carbon Dioxide (21.0-32.0) mmol/L BUN (7.0-18.0) mg/dL Creatinine (0.8-1.3) mg/dL Est Cr Clr Drug Dosing mL/min Estimated GFR (MDRD) ml/min Glucose (74-106) mg/dL Hemoglobin A1c 5.4 (4.5-6.2) % Calcium (8.5-10.1) mg/dL Total Bilirubin (0.2-1.0) mg/dL AST (15-37) IU/L ALT (14-63) IU/L Alkaline Phosphatase (46-116) U/L Troponin I (0.000-0.056) ng/mL Total Protein (6.4-8.2) g/dL Albumin (3.4-5.0) g/dL Globulin (2.6-4.0) g/dL Albumin/Globulin Ratio (0.9-1.6) Triglycerides (0-200) mg/dL Cholesterol (50-200) mg/dL LDL Cholesterol, Calc (60-180) mg/dL VLDL Cholesterol (5-55) mg/dL HDL Cholesterol (40-60) mg/dL Cholesterol/HDL Ratio (3.3-6.0) TSH 3rd Generation (0.36-3.74) uIU/mL Urine Color Urine Appearance Urine pH (5.0-8.0) Ur Specific [place] (1.001-1.035) Urine Protein (NEGATIVE) mg/dL Urine Glucose (UA) (NEGATIVE) mg/dL Urine Ketones (NEGATIVE) mg/dL Urine Occult Blood (NEGATIVE) Urine Nitrite (NEGATIVE) Urine Bilirubin (NEGATIVE) Urine Urobilinogen (<2.0) EU/dL Ur Leukocyte Esterase (NEGATIVE) Urine RBC (0-2/HPF) Urine WBC (0-5/HPF) Ur Epithelial Cells (NONE-FEW) Urine Bacteria (NEGATIVE) Urine Mucus (NONE-MOD) Med Orders - Current: Current Medications Acetaminophen (Tylenol) 650 mg PO Q4H PRN PRN Reason: Pain (Mild 1-3)/fever Aspirin (Aspirin) [address] [facility] Last Admin: 09/28/19 08:24 Dose: 81 mg Atorvastatin Calcium (Lipitor) 40 mg PO BEDTIME ISMAEL Hydralazine HCl (Apresoline) 20 mg IVPUSH Q4H PRN PRN Reason: Hypertension Sodium Chloride (Saline Flush) 10 ml FLUSH ASDIRECTED PRN PRN Reason: Keep Vein Open Sodium Chloride (Saline Flush) 2.5 ml FLUSH ASDIRECTED PRN PRN Reason: Keep Vein Open Sodium Chloride (Normal Saline) 10 ml IV ASDIRECTED PRN PRN Reason: IV Use Discontinued Medications Aspirin (Aspirin) 324 mg PO ONETIME ONE Stop: 09/27/19 19:11 Last Admin: 09/27/19 19:29 Dose: Not Given Iopamidol (Isovue-370 (76%)) 100 ml IVPUSH ONETIME STA Stop: 09/27/19 20:48 Last Admin: 09/27/19 20:47 Dose: 100 ml <Ila Luis - Last Filed: 09/30/19 12:18> Discharge Summary - Hospital Course HPI Initial Comments: I have seen and evaluated the patient and agree with the residents note unless specified in my note - Referral to Home Health Primary Care Physician: PCP None - Discharge Diagnosis/Problem(s) (1) Vision changes SNOMED Code(s): 174364914 ICD Code: H53.9 - UNSPECIFIED VISUAL DISTURBANCE Status: Acute (2) CVA, old, aphasia SNOMED Code(s): 059901312 ICD Code: I69.320 - APHASIA FOLLOWING CEREBRAL INFARCTION Status: Acute (3) HTN (hypertension) SNOMED Code(s): 53797270 ICD Code: I10 - ESSENTIAL (PRIMARY) HYPERTENSION Status: Acute - Patient Data Vitals - Most Recent: Last Vital Signs Temp 36.7 C 09/28/19 08:00 Pulse 52 L 09/28/19 08:00 Resp 16 09/28/19 08:00 BP 158/81 H 09/28/19 08:00 Pulse Ox 94 L 09/28/19 08:00 Med Orders - Current: Current Medications Discontinued Medications Acetaminophen (Tylenol) 650 mg PO Q4H PRN PRN Reason: Pain (Mild 1-3)/fever Aspirin (Aspirin) 324 mg PO ONETIME ONE Stop: 09/27/19 19:11 Last Admin: 09/27/19 19:29 Dose: Not Given Aspirin (Aspirin) 81 mg PO DAILY ISMAEL Last Admin: 09/28/19 08:24 Dose: 81 mg Atorvastatin Calcium (Lipitor) 40 mg PO BEDTIME ISMAEL Hydralazine HCl (Apresoline) 20 mg IVPUSH Q4H PRN PRN Reason: Hypertension Iopamidol (Isovue-370 (76%)) 100 ml IVPUSH ONETIME STA Stop: 09/27/19 20:48 Last Admin: 09/27/19 20:47 Dose: 100 ml Sodium Chloride (Saline Flush) 10 ml FLUSH ASDIRECTED PRN PRN Reason: Keep Vein Open Sodium Chloride (Saline Flush) 2.5 ml FLUSH ASDIRECTED PRN PRN Reason: Keep Vein Open Sodium Chloride (Normal Saline) 10 ml IV ASDIRECTED PRN PRN Reason: IV Use
[2019-09-28] MEDS ORDERED: atorvaSTATin 40 MG Tab PO SCH (21:00)
--- NOTE | 2019-09-30 14:33 | ECHO ---
EXAM DATE: 09/27/19 PATIENT'S AGE: 74 The ECHO report can be seen in this patient's EMR (Electronic Medical Record) in the REPORTS section. The report has also been scanned into PACS. ALEXANDRE
== END 2019-09-28 13:30 | disposition home or self-care (01) ==
LOC: MW.ED 19:06 → MW.MS 21:18
PROVIDERS: ADMIT Student in an Organized Health Care Education/Training Program; ATTEND Student in an Organized Health Care Education/Training Program
DX: H53.9 Unspecified visual disturbance (principal); I10 Essential (primary) hypertension; I69.320 Aphasia following cerebral infarction; Z87.74 Personal history of (corrected) congenital malformations of heart and circulatory system; Z79.82 Long term (current) use of aspirin; Z79.899 Other long term (current) drug therapy
CPT/HCPCS: 36415; 70450; 70496; 70498; 80053; 80061; 81001; 83036; 84443; 84484; 85025; 85610; 85730; 93005; 93306; 99285; A9270; Q9967